=== PATIENT | male | born 1950 | race Caucasian/White ===

== ENCOUNTER 2017-04-29 13:33 | Emergency (ER) | payer OTHER ==
[~2017-04-29] VITALS: Ht 188 cm; Wt 102.0 kg
[~2017-04-29 13:33] MED LIST: AMARYL PO; ASPIRIN81 M2 PO; LISINOPRIL-HCTZ1 T14 PO; LOVAZA1 G PO; METFORMIN HCL500 M1 PO; METFORMIN PO; MULTI VITAMIN1 EACH PO; PRAVASTATIN SOD40 MG PO
[2017-04-29 15:13] LABS: URINE SOURCE CLEAN CATCH
[2017-04-29 15:22] LABS: BASOPHIL% 0.5 % (0-2.5); EOSINOPHIL# 0.2 X10e3 (0-0.7); EOSINOPHIL% 2.2 % (0.0-7.0); HEMATOCRIT 47.9 % (38.0-50.0); HEMOGLOBIN 16.3 gm/dL (13.0-16.0); LYMPHOCYTE# 1.4 X10e3 (1.0-3.5); LYMPHOCYTE% 16.4 % (17.0-45.0); MEAN CELL VOLUME 89.7 FL (83-96); MEAN CORPUSCULAR HEMOGLOBIN 30.5 PG (28-34); MEAN CORPUSCULAR HGB CONC 34.1 g/dL (30-36); MEAN PLATELET VOLUME 10.7 FL (6.5-11.5); MONOCYTE# 0.5 X10e3 (0-1.0); MONOCYTE% 5.9 % (3.0-12.0); NEUTROPHIL# 6.4 X10e3 (1.5-7.1); PLATELET COUNT 191 X10e3 (140-420); RED BLOOD COUNT 5.35 X10e (3.90-5.60); WHITE BLOOD COUNT 8.6 X10e3 (4.0-10.5)
[2017-04-29 15:26] LABS: DIFF IND NO
[2017-04-29 15:27] LABS: URINE APPEARANCE CLEAR; URINE BILIRUBIN NEG (NEG); URINE BLOOD NEG (NEG); URINE COLOR YELLOW; URINE GLUCOSE NEG (NEG); URINE KETONE NEG (NEG); URINE LEUKOCYTE ESTERASE NEG (NEG); URINE NITRATE NEG (NEG); URINE PH 5.5 (5-8); URINE PROTEIN 1+ (NEG); URINE SPECIFIC GRAVITY 1.009 (1.003-1.035); URINE UROBILINOGEN 0.2 MG/DL (NEG)
[2017-04-29 15:30] LABS: URBCS1 AUWI 0-2 /[HPF] (0-2); URINE BACTERIA AUWI NEG (NEGATIVE); URINE SQUAMOUS EPITHELIAL CELL NONE SEEN /[HPF]; UWBCS1 AUWI 0-2 (0-5)
[2017-04-29 15:31] LABS: CULTURE INDICATED? NO
[2017-04-29 15:41] LABS: ALBUMIN SERUM 4.8 g/dL (3.5-5.0); BILIRUBIN, DIRECT 0.1 mg/dL (0.0-0.2); BILIRUBIN,INDIRECT 0.4 mg/dL (0.0-0.9); BILIRUBIN,TOTAL 0.5 mg/dL (0.2-2.0); CALCIUM SERUM 9.2 mg/dL (8.4-10.2); POTASSIUM 3.8 mmol/L (3.5-5.1); PROTEIN TOTAL SERUM 8.3 g/dL (6.0-8.3)
== END 2017-04-29 16:15 | disposition home or self-care (01) ==
LOC: CED 13:33
PROVIDERS: Emergency Medicine
DX: R10.9 Unspecified abdominal pain (principal)
CPT/HCPCS: 36415; 80048; 80076; 81003; 83690; 85025; 99284

== ENCOUNTER 2017-05-09 10:43 | Inpatient (IN) | payer MEDICARE, OTHER ==
[~2017-05-09] VITALS: Ht 188 cm; Wt 99.8 kg
--- NOTE | ~2017-05-09 | US6 ---
[facility] A Service of [facility] RADIOLOGY TEXT RESULTS PATIENT: CYNTHIA VALDIVIA LOCATION: [facility] 223 : 48 UNIT #: [id number] AGE: [address]: Ashish Rojas MD SEX: M ORDER DR: [id number] [facility] [address] [facility]. [place], [place] [address] [id number] MR#: [id number] #: [id number] NAME: CYNTHIA VALDIVIA : 1950 SEX: M STUDY DATE/TIME: 05/10/2017 8:05 UNIT: A ROOM: [facility] STUDY DESCRIPTION: US Abdominal Limited Attending Physician: Ashish Rojas M.D. Ordering Physician: Yanet Cuevas M.D. Primary Care Physician: Eric Huerta M.D. MEDICAL IMAGING REPORT This report is preliminary unless electronic signature is present EXAM Right upper quadrant ultrasound, 05/10. INDICATIONS Epigastric pain for 1 week. Pancreatitis. FINDINGS Sonographic evaluation performed of the right upper quadrant in multiple planes. Comparison made with CT abdomen from 05/09/2017. The pancreas is unremarkable on the images provided. Gallbladder is normal. No gallstones are seen. There is no gallbladder wall thickening. Right kidney is nonobstructed. Liver parenchyma homogeneous with no focal mass. Main portal vein patent by Doppler. Common duct normal at 3 mm. Right kidney is somewhat echogenic. Please correlate clinically for medical renal disease. IMPRESSION 1. Normal gallbladder. No biliary obstruction. 2. Potentially a echogenic kidney which may reflect medical renal disease. Correlate clinically. 3. Otherwise, negative. Dictated by... Ramiro Gimenez Jr., M.D. THIS IS AN ELECTRONICALLY VERIFIED REPORT Ramiro Gimenez Jr., M.D. at 05/10/2017 3:48 PM HANNAH/liborio TD: 05/10/2017 12:50 JOB #: [id number] MEDICAL IMAGING REPORT [facility] A Service of [facility] RADIOLOGY TEXT RESULTS PATIENT: CYNTHIA VALDIVIA LOCATION: [facility] 223-01 : 48 UNIT #: [id number] AGE: [address]: Ashish Rojas MD SEX: M ORDER DR: Page 1 of 1 COPY
--- NOTE | ~2017-05-09 | EKG ---
PATIENT: CYNTHIA VALDIVIA UNIT #: [id number] Ventricular Rate: 72 BPM Atrial Rate: 72 BPM QRS Duration: 96 ms Q-T Interval: 412 ms QTC Calculation(Bezet): 451 ms Calculated R [place]: 61 degrees Calculated T [place]: 67 degrees Diagnosis Line: Normal sinus rhythm Diagnosis Line: Otherwise normal ECG Diagnosis Line: No previous ECGs available Diagnosis Line: Confirmed by PINKY SOTO MD ([id number]) on 05/09/2017 Diagnosis Line: 6:06:44 PM INTERPRETING MD: CHARLES LIN
--- NOTE | ~2017-05-09 | DS ---
Unit #: [id number] #: [id number] Patient: CYNTHIA VALDIVIA [id number] [address] [address] [id number] I MR#: [id number] NAME: CYNTHIA VALDIVIA ROOM: 223 Age: 66 Sex: M Admission Date: 05/09/2017 : 1950 Discharge Date: 05/11/2017 Attending Physician: Ashish Rojas M.D. Primary Care Physician: Eric Huerta M.D. DISCHARGE SUMMARY PRIMARY DIAGNOSES Acute idiopathic pancreatitis. SECONDARY DIAGNOSES 1. Diabetes mellitus type 2. 2. Hyperkalemia, resolved at discharge. 3. History of alcohol abuse with reports of only mild alcohol use over the last year. HOSPITAL COURSE The patient was admitted to the hospital, started on IV fluids and kept n.p.o., given antiemetics as needed. Had a right upper quadrant ultrasound. The patient's hemoglobin A1c was elevated at 7. Lipase and potassium levels were elevated but came down with IV fluids and holding the patient's home lisinopril and hydrochlorothiazide. These lab abnormalities improved significantly. The patient's pain went away. He was tolerating a solid diet at discharge without any pain. He was counseled about the relationship of alcohol and pancreatitis. DISCHARGE DISPOSITION To home. DISCHARGE STATUS Stable. DISCHARGE ACTIVITY Ad pito. DISCHARGE FOLLOWUP With his PCP in 2 weeks. DISCHARGE MEDICATIONS 1. Hydrochlorothiazide. 2. Lisinopril 20 mg/12.5 mg 1 tablet p.o. daily. 3. Metformin 850 mg p.o. b.i.d. 4. Pravachol 40 mg p.o. daily. 5. Multivitamin 1 tablet p.o. daily. 6. Aspirin 81 mg p.o. daily. Dictated by... Ashish Rojas M.D. Unit #: [id number] #: [id number] Patient: CYNTHIA VADLIVIA MYRON/bzg TD: 05/12/2017 07:08 JOB #: [id number] DISCHARGE SUMMARY Page 1 of 1 X Ashish Rojas MD DISCHARGE SUMMARY
--- NOTE | ~2017-05-09 | HP ---
Unit #: [id number] #: [id number] Patient: CYNTHIA VALDIVIA [id number] [facility]. [place], [place] [address] [id number] I MR#: [id number] NAME: CYNTHIA VALDIVIA ROOM: 223 Age: 66 Sex: M Admission Date: 05/09/2017 : 1950 Attending Physician: Yanet Cuevas M.D. Primary Care Physician: Eric Huerta M.D. HISTORY AND PHYSICAL CHIEF COMPLAINT Stomach pain. HISTORY OF PRESENT ILLNESS The patient is a 66-year-old male with a past medical history of hypertension, hyperlipidemia, pancreatitis, abnormal colon polyp, and diabetes, who presented to the emergency department for evaluation of the above. The patient states that he has had a one to two-week history of abdominal pain. The pain is in the upper abdomen. He describes it as "severe." It has been intermittent in nature. It is exacerbated by eating. There are no alleviating factors. He denies any vomiting. He has had loose stool which he attributes to metformin. The loose stool is no worse than usual. He denies any fever and no cough or cold symptoms. Of note, the patient was seen at [facility] on April 29, 2017. Lipase was noted to be 92. He was diagnosed with pancreatitis and discharged home. He states that the symptoms have persisted. In the emergency department today, amylase and lipase are 107 and 187, respectively. CT of the abdomen and pelvis shows findings concerning for pancreatitis. He was given one liter of normal saline, as well as 4 mg of morphine and 4 mg of Zofran. He is being admitted to [facility] for evaluation and further treatment. Of note, the patient has a history of heavy alcohol abuse but states that now he drinks about once a month. His last drink was in the beginning of April. PAST MEDICAL HISTORY 1. Admission to [facility] September 01, 2014, for acute pancreatitis secondary to alcohol abuse. 2. Abnormal colon polyp. 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 He sees Dr. Galindo. 3. Hypertension. 4. Hyperlipidemia. 5. Diabetes. PAST SURGICAL HISTORY 1. Orchiectomy. 2. Nephrectomy. 3. Inguinal hernia repair. 4. Colonoscopy. Unit #: [id number] #: [id number] Patient: CYNTHIA VALDIVIA SOCIAL HISTORY The patient lives with his . 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 He has a history of alcohol abuse but states that he has cut back to drinking about once a month. His last drink was in the beginning of April. He smokes a half pack of cigarettes daily. FAMILY HISTORY Notable for his mother having diabetes, and his dad had leukemia. ALLERGIES No known allergies. HOME MEDICATIONS 1. Aspirin. 2. Lisinopril. 3. Hydrochlorothiazide. 4. Metformin. 5. Multivitamin. 6. Pravastatin. Home medications will need to be reviewed and verified. REVIEW OF SYSTEMS A complete review of systems is negative except as indicated in the HPI. The patient states that he has lost about 40 pounds over the past six months which he attributes to better eating choices. PHYSICAL EXAMINATION VITAL SIGNS: Temperature is 98, pulse 91, respirations 18, blood pressure 150/93, and oxygen saturation is 99% on room air. GENERAL: Patient is a male who is awake, alert, and in no acute distress. HEENT: Head is atraumatic. Mucous membranes are moist. NECK: Supple. Trachea is midline. CARDIOVASCULAR: Regular rate and rhythm. LUNGS: Clear to auscultation bilaterally with no increased work of breathing. ABDOMEN: Soft. He is mildly tender to palpation in the epigastric region. Bowel sounds are present in all four quadrants. EXTREMITIES: Nontender with no pedal edema. NEUROLOGIC: Patient is awake and alert. He follows commands. PSYCHIATRIC: Mood and affect are normal. Patient is cooperative. SKIN: Skin of examined areas is warm and dry. DIAGNOSTIC STUDIES LABORATORY: Complete blood count is notable for hemoglobin of 16.3. Urinalysis notable for 2+ protein, 100 glucose, and trace ketones. Comprehensive metabolic panel notable for glucose of 202, calcium 10.4, and ALT 56. Amylase and lipase are 107 and 187, respectively. IMAGING: CT of the abdomen and pelvis shows minimal haziness involving the pancreatic head suggestive of pancreatitis. ASSESSMENT The patient is a 66-year-old male with: 1. Acute pancreatitis. The patient's amylase and lipase are 107 and 187, respectively. He has had pancreatitis in the past secondary to Unit #: [id number] #: [id number] Patient: CYNTHIA VALDIVIA alcohol. Additionally, he is on lisinopril and hydrochlorothiazide which could also cause pancreatitis. 2. Hypertension. 3. Hyperlipidemia. 4. History of abnormal colon polyp with focal high-grade dysplasia, followed by Dr. Galindo. 5. Diabetes. The patient does not routinely check his blood sugars. 6. History of heavy alcohol. The patient states that he has cut back significantly, only drinking once a month with last drink being in the beginning of April. 7. Tobacco abuse. PLAN 1. Admit to med/surg. 2. Normal saline at 100 mL/hour. 3. N.p.o. except medications. 4. P.r.n. morphine. 5. P.r.n. Zofran. 6. Right upper quadrant ultrasound for further evaluation of pancreatitis and to rule out possible cholelithiasis. 7. Fasting lipid panel. 8. Hold lisinopril. 9. Hold hydrochlorothiazide. 10. Hemoglobin A1c. 11. Low-dose sliding scale insulin with Accu-Cheks. 12. EKG and cardiac enzymes if not done. 13. Repeat labs in the morning including amylase and lipase. 14. SCDs for DVT prophylaxis. 15. Additional workup and consultants based on above. 1. Dictated by Salazar Quinn/scott TD: 05/09/2017 18:10 JOB #: [id number] HISTORY AND PHYSICAL Page 1 of 1 X Yaent Cuevas MD X HISTORY AND PHYSICAL
--- NOTE | ~2017-05-09 | CT4 ---
[facility] A Service of [facility] RADIOLOGY TEXT RESULTS PATIENT: CYNTHIA VALDIVIA LOCATION: [facility] [id number] : [birth year] UNIT #: [id number] AGE: [address]: Yanet Cuevas MD SEX: M ORDER DR: [id number] [facility]. [place], [place] [address] [id number] MR#: [id number] #: [id number] NAME: CYNTHIA VALDIVIA : 1950 SEX: M STUDY DATE/TIME: 05/09/2017 11:26 UNIT: TOMA ROOM: STUDY DESCRIPTION: CT Abd and Pelv Wo Cont Attending Physician: Semaj Lazaro M.D. Ordering Physician: Semaj Lazaro M.D. Primary Care Physician: Eric Huerta M.D. MEDICAL IMAGING REPORT This report is preliminary unless electronic signature is present EXAM CT abdomen and pelvis without contrast INDICATION Abdominal pain starting 1 week ago. History of pancreatitis. COMPARISON 09/01/2014 TECHNIQUE Axial 3.0 mm images were obtained through the abdomen and pelvis without IV or oral contrast. Sagittal and coronal reconstructions were generated. This CT exam was performed with one or more of the following radiation dose reduction techniques: automatic exposure control, adjustment of mA and/or kV according to patient size, and iterative reconstruction. FINDINGS Lung bases are clear. The liver, gallbladder, spleen, and adrenal glands are normal. The pancreas is normal in appearance except for perhaps minimal hazy edema around the pancreatic head and uncinate process. The left kidney is absent. The right kidney is normal. The aorta is normal in size and there is no adenopathy. The bowel is normal in appearance. The bladder and prostate gland are normal. The bones show mild degenerative changes. IMPRESSION 1. There may be very minimal hazy edema around the pancreatic head and uncinate process. 2. Previous left nephrectomy. 3. Otherwise normal. The studies could represent mild pancreatitis. Dictated by... [facility] A Service [facility] RADIOLOGY TEXT RESULTS PATIENT: CYNTHIA VALDIVIA LOCATION: [facility] [id number] : [birth year] UNIT #: [id number] AGE: [address]: Yanet Cuevas MD SEX: M ORDER DR: Jarrod Sen M.D. THIS IS AN ELECTRONICALLY VERIFIED REPORT Jarrod Sen M.D. at 05/09/2017 3:30 PM Tonny TD: 05/09/2017 14:03 JOB #: [id number] MEDICAL IMAGING REPORT Page 1 of 1 COPY
[2017-05-09 11:20] LABS: BASOPHIL# 0.1 X10e3 (0-0.3); BASOPHIL% 0.8 % (0-2.5); EOSINOPHIL# 0.4 X10e3 (0-0.7); HEMATOCRIT 48.4 % (38.0-50.0); HEMOGLOBIN 16.3 gm/dL (13.0-16.0); LYMPHOCYTE# 1.6 X10e3 (1.0-3.5); LYMPHOCYTE% 17.1 % (17.0-45.0); MEAN CELL VOLUME 90.1 FL (83-96); MEAN CORPUSCULAR HEMOGLOBIN 30.3 PG (28-34); MEAN CORPUSCULAR HGB CONC 33.7 g/dL (30-36); MEAN PLATELET VOLUME 10.7 FL (6.5-11.5); MONOCYTE# 0.5 X10e3 (0-1.0); MONOCYTE% 5.7 % (3.0-12.0); NEUTROPHIL# 6.7 X10e3 (1.5-7.1); NEUTROPHIL% 72.4 % (40-75); PLATELET COUNT 232 X10e3 (140-420); RED BLOOD COUNT 5.38 X10e (3.90-5.60); RED CELL DISTRIBUTION WIDTH 13.1 % (11.0-15.5); WHITE BLOOD COUNT 9.2 X10e3 (4.0-10.5)
[2017-05-09 11:26] LABS: DIFF IND NO
[2017-05-09 11:27] LABS: URINE SOURCE CLEAN CATCH
[2017-05-09 11:35] LABS: URINE APPEARANCE CLEAR; URINE BILIRUBIN NEG (NEG); URINE BLOOD NEG (NEG); URINE COLOR DK YELLOW; URINE GLUCOSE 100 MG/DL (NEG); URINE KETONE TRACE (NEG); URINE LEUKOCYTE ESTERASE NEG (NEG); URINE NITRATE NEG (NEG); URINE PROTEIN 2+ (NEG); URINE SPECIFIC GRAVITY 1.022 (1.003-1.035); URINE UROBILINOGEN 0.2 MG/DL (NEG)
[2017-05-09 11:38] LABS: URBCS1 AUWI 0-2 /[HPF] (0-2); URINE BACTERIA AUWI NEG (NEGATIVE); URINE SQUAMOUS EPITHELIAL CELL NONE SEEN /[HPF]; UWBCS1 AUWI 0-2 (0-5)
[2017-05-09 11:44] LABS: CULTURE INDICATED? NO
[2017-05-09 11:52] LABS: ALBUMIN SERUM 4.5 g/dL (3.5-5.0); BILIRUBIN, DIRECT 0.1 mg/dL (0.0-0.2); BILIRUBIN,INDIRECT 0.7 mg/dL (0.0-0.9); BILIRUBIN,TOTAL 0.8 mg/dL (0.2-2.0); CALCIUM SERUM 10.4 mg/dL (8.4-10.2)
[2017-05-09 14:17] LABS: CHOLESTEROL 160 mg/dL (0-200); HDL CHOLESTEROL 40 mg/dL (29-75); LDL CHOLESTEROL 72 mg/dL (-130); LDL/HDL RATIO 2 RATIO (0-4); TRIGLYCERIDES 238 mg/dL (10-160)
[2017-05-09] MEDS ORDERED: ZESTORETIC 20-1 EAC1 PO (16:33)
[2017-05-09] MEDS ORDERED: METFORMIN HCL850 MG PO (16:33)
[2017-05-09] MEDS ORDERED: PRAVACHOL PO (16:34)
[2017-05-09 18:32] LABS: %MB 3.6 % (0.0-4.0); MB 4.1 ng/ml
[2017-05-10 00:14] LABS: %MB 3.5 % (0.0-4.0); MB 4.5 ng/ml
[2017-05-10 06:16] LABS: BASOPHIL# 0.1 X10e3 (0-0.3); EOSINOPHIL# 0.4 X10e3 (0-0.7); EOSINOPHIL% 5.2 % (0.0-7.0); HEMATOCRIT 43.6 % (38.0-50.0); HEMOGLOBIN 14.6 gm/dL (13.0-16.0); LYMPHOCYTE# 1.7 X10e3 (1.0-3.5); LYMPHOCYTE% 20.6 % (17.0-45.0); MEAN CELL VOLUME 89.9 FL (83-96); MEAN CORPUSCULAR HEMOGLOBIN 30.1 PG (28-34); MEAN CORPUSCULAR HGB CONC 33.5 g/dL (30-36); MEAN PLATELET VOLUME 9.9 FL (6.5-11.5); MONOCYTE# 0.5 X10e3 (0-1.0); MONOCYTE% 6.6 % (3.0-12.0); NEUTROPHIL# 5.4 X10e3 (1.5-7.1); NEUTROPHIL% 66.6 % (40-75); PLATELET COUNT 186 X10e3 (140-420); RED BLOOD COUNT 4.85 X10e (3.90-5.60); RED CELL DISTRIBUTION WIDTH 12.9 % (11.0-15.5)
[2017-05-10 06:17] LABS: DIFF IND NO
[2017-05-10 06:58] LABS: ALBUMIN SERUM 3.6 g/dL (3.5-5.0); BILIRUBIN,TOTAL 0.9 mg/dL (0.2-2.0); POTASSIUM 5.2 mmol/L (3.5-5.1); PROTEIN TOTAL SERUM 6.1 g/dL (6.0-8.3)
[2017-05-10 07:33] LABS: %MB 3.5 % (0.0-4.0); MB 4.2 ng/ml
[2017-05-10] MEDS ORDERED: MULTIVITAMINS1 EAC3 PO (10:43)
[2017-05-10] MEDS ORDERED: ASPIRIN81 M2 PO (10:43)
[2017-05-11 07:10] LABS: BUN/CREATININE RATIO 12.5; CALCIUM SERUM 8.9 mg/dL (8.4-10.2); CREATININE SERUM 0.8 mg/dL (0.6-1.4); GLOM FILT RATE Estimated 91.8 mL/min (>60); POTASSIUM 4.1 mmol/L (3.5-5.1)
== END 2017-05-11 10:25 | disposition home or self-care (01) | DRG 440 ==
LOC: CED 10:43 → CEDOF 13:40 → CED 14:18 → C2A 16:03 → CEDOF 16:03 → C2A 05-10 06:24
PROVIDERS: Emergency Medicine; Family Medicine; Internal Medicine
DX: K85.00 Idiopathic acute pancreatitis without necrosis or infection (principal); E87.5 Hyperkalemia; I10 Essential (primary) hypertension; E11.9 Type 2 diabetes mellitus without complications; Z79.84 Long term (current) use of oral hypoglycemic drugs; E78.5 Hyperlipidemia, unspecified; Z79.82 Long term (current) use of aspirin; F17.200 Nicotine dependence, unspecified, uncomplicated
CPT/HCPCS: 36415; 74176; 76705; 80048; 80053; 80061; 80076; 81003; 82150; 82550; 82553; 82947; 83036; 83690; 84484; 85025; 93005; 94760; 96361; 96374; 96375; 99284; J1815; J2270; J2405